=== PATIENT | female | born 2000 | race Two or more races ===

== ENCOUNTER 2021-01-14 14:37 | Emergency (ER) | payer OTHER ==
[~2021-01-14] VITALS: Ht 167.6 cm; Wt 75.7 kg
--- NOTE | 2021-01-14 15:56 | NUR ---
PT AMBULATED TO RESTROOM WITH STEADY GAIT TO PROVIDED URINE SAMPLE. UA COLLECTED AND SENT TO LAB. LABS DRAWN BY LEGAL RECEPTIONIST.
[2021-01-14 15:59] LABS: BASOPHILS % (AUTO) 1 % (0-1); EOSINOPHILS % (AUTO) 2 % (1-7); LYMPHOCYTES % (AUTO) 36 % (22-44); MEAN CORPUSCULAR HEMOGLOBIN 32.7 pg (27.0-34.8); MEAN CORPUSCULAR HGB CONC 35.9 g/dL (32.4-35.8); MEAN PLATELET VOLUME 7.7 fL (7.4-10.4); MONOCYTES % (AUTO) 7 % (2-9); NEUTROPHILS % (AUTO) 54 % (42-75); PLATELET COUNT 361 x10^3/uL (130-400); RED BLOOD COUNT 3.97 x10^6/uL (3.82-5.3); RED CELL DISTRIBUTION WIDTH 12.8 % (9.6-15.2)
[2021-01-14 16:00] LABS: MD NO
[2021-01-14 16:03] LABS: MICROSCOPIC INDICATED
[2021-01-14 16:08] LABS: ALBUMIN 3.9 g/dL (3.4-5.0); ANION GAP 4 mmol/L (5-15); CALCIUM 8.8 mg/dL (8.5-10.1); CHLORIDE 106 mmol/L (98-107); CREATININE 0.63 mg/dL (0.55-1.02)
[2021-01-14 16:25] VITALS: BP 128/80
--- NOTE | 2021-01-14 16:27 | NUR ---
ERPA AT BEDSIDE TO UPDATE PT ON POC.
== END 2021-01-14 16:34 | disposition home or self-care (01) ==
LOC: ED 16:28
DX: N93.8 Other specified abnormal uterine and vaginal bleeding (principal)
CPT/HCPCS: 36415; 80048; 81001; 82040; 84703; 85025; 99283